=== PATIENT | male | born 2005 | race Caucasian/White ===

== ENCOUNTER 2023-06-19 18:30 | Emergency (ER) | payer OTHER, SELFPAY ==
--- NOTE | ~2023-06-19 | XR_ITS ---
EXAMINATION: XR hand RT min 3V DATE: 06/19/2023 18:46 INDICATION: Cat bite. TECHNIQUE: 3 views of right hand were obtained. COMPARISON: None. FINDINGS: Bone alignment is normal. No fracture. Joint spaces are normal. IMPRESSION: 1. No fracture or radiopaque foreign body. Reviewed, dictated and finalized at location E.
[2023-06-19 18:32] VITALS: BP 143/89; PULSE 80; RESP 16; TEMP 36.7; O2SAT 99
--- NOTE | 2023-06-19 18:37 | ED.ANIMALBIT ---
HPI - Animal Bite General Chief Complaint: Animal Bite Stated Complaint: cat bite Time Seen by Provider: 06/19/23 18:37 Source: patient Mode of arrival: ambulatory Limitations: no limitations History of Present Illness HPI narrative: Patient got bitten by his cat last night to right hand because his girlfriend had a dog came over. No other injuries. Today patient had started getting swollen and red and more painful than last night. Patient is up-to-date for tetanus shot. He denies other injuries. Related Data Allergies Allergy/AdvReac Type Severity Reaction Status Date / Time No Known Allergies Allergy Verified 06/19/23 19:01 Review of Systems Review of Systems: All systems reviewed & are unremarkable except as noted in HPI and below Exam Narrative: General appearance: Well-developed, well-nourished Skin: Normal color Head: Normocephalic, nontraumatic Vascular: Normal peripheral pulses, normal capillary refill. Musculoskeletal: Right hand exam showed multiple puncture wound dorsal side of the right hand with erythematous changes, slightly swelling, no discharge, no deformity. Neurologic: Alert and oriented ?3, [employer] is normal as tested, no gross motor deficit Course Vital Signs Vital signs: Vital Signs Temperature 36.7 C 06/19/23 18:32 Pulse Rate 80 06/19/23 18:32 Respiratory Rate 16 06/19/23 18:32 Blood Pressure 143/89 H 06/19/23 18:32 Pulse Oximetry 99 06/19/23 18:32 Temperature 36.7 C 06/19/23 18:32 Pulse Rate 80 06/19/23 18:32 Respiratory Rate 16 06/19/23 18:32 Blood Pressure 143/89 H 06/19/23 18:32 Pulse Oximetry 99 06/19/23 18:32 MDM - Animal Bite MDM Narrative Medical decision making narrative: Patient presents with cat bite to right hand roughly 24 hours ago, presents with puncture wound and sign of infection, X-ray of right hand showed no acute abnormalities, in the ED patient received 875 mg of Augmentin p.o. prior to discharge. Diagnosis of cat bite with infection, patient will be discharged on Augmentin and to follow-up with his family physician in 3 to 5 days. Patient is up-to-date for her tetanus shot Differential Diagnosis Differential diagnosis: Likely cat bite and other (Cat bite with infection) Imaging Data Radiologist's impression: Impressions Hand X-Ray 06/19/23 18:47 IMPRESSION: 1. No fracture or radiopaque foreign body. Critical Care Time Critical Care Time Critical Care Time: No Discharge Plan Discharge Clinical Impression: Cat bite Patient Disposition: Home, Self-Care Condition: Stable Instructions: Antibiotic Form, Animal Bite (ED) Additional Instructions: keep hand elevated return if symptoms are worsening , call your family physician for appointment, take Tylenol as as needed for aches and pain, continue home medications. Prescriptions: New amoxicillin-pot clavulanate [Augmentin] 500-125 mg tablet 1 tablet PO Q8H Qty: 30 0RF Follow-up/Referrals: PHYSICIAN NOT ON STAFF,NONSTAFF [Primary Care Provider] - Aden Roman MD [Physician] - 06/19/23 7:19 pm
[2023-06-19] MEDS: AMOXICILLIN/CLAVULANATE K 875-125 MG TAB 1 TABLET PO (19:01)
== END 2023-06-19 19:30 | disposition home or self-care (01) ==
PROVIDERS: Emergency Provider Emergency Medicine
DX: S61.451A Open bite of right hand, initial encounter (principal); W55.01XA Bitten by cat, initial encounter
CPT/HCPCS: 73130; 99283; A9270